=== PATIENT | male | born 1945 | race Caucasian/White ===

== ENCOUNTER 2017-03-19 23:48 | Inpatient (IN) | payer MEDICARE ==
[2017-03-20] MEDS ORDERED: Labetalol HCl 100 MG/20 ML VIAL ONE (00:56)
[2017-03-20 01:07] LABS: #Eosinphils 0.1 thou/uL (0.0-0.7); #Lymphocytes 2.4 thou/uL (1.20-3.40); #Monocytes 0.5 thou/uL (0.11-0.59); #Neutrophils 5.3 thou/uL (1.40-6.50); %Basophils 0.3 % (0.0-1.0); %Eosinophils 0.6 % (0.0-10.0); %Lymphocytes 28.9 % (21.0-51.0); %Neutrophils 64.2 % (42.0-75.0); Hemoglobin 16.4 g/dL (14.0-18.0); Mean Corpuscular HGB CONC 34.8 g/dL (32.0-36.0); Mean Corpuscular Hemoglobin 30.8 pg (27.0-31.0); Mean Corpuscular Volume 88.6 fl (80.0-94.0); Mean Platelet Volume 7.9 fL (7.4-10.4); Platelet Count 129 thou/uL (130-400); RBC Distribution Width 12.5 % (11.5-14.5); Red Blood Cell (RBC) Count 5.33 mill/uL (4.70-6.10); White Blood Cell (WBC) Count 8.2 thou/uL (4.8-10.8)
[2017-03-20 01:11] LABS: PTT 27.9 SEC (22.9-36.1)
[2017-03-20 01:12] LABS: INR-International Normal Ratio 1.1; Prothrombin Time 14.1 SEC (12.0-14.7)
[2017-03-20 01:29] LABS: ALT (SGPT) 80 U/L (8-55); AST (SGOT) 46 U/L (5-34); Albumin 4.8 g/dL (3.4-4.8); Alkaline Phosphatase 62 U/L (40-150); Anion Gap 15 mmol/L (10-20); BUN (Urea Nitrogen) 14 mg/dL (8.4-25.7); Bilirubin, Total 1.6 mg/dL (0.2-1.2); CK (CPK) 45 U/L (30-200); Calc. Creatinine Clearance 0 mL/min (70-130); Calcium 10.7 mg/dL (7.8-10.44); Carbon Dioxide 27 mmol/L (23-31); Chloride 100 mmol/L (98-107); Estimated GFR-MDRD 61; Globulin 3.9 g/dL (2.4-3.5); Glucose 145 mg/dL (83-110); Protein, Total 8.7 g/dL (5.8-8.1); Sodium 138 mmol/L (136-145)
[2017-03-20 01:33] LABS: CKMB 1.2 ng/mL (0-6.6); Troponin I 0.013 ng/mL (< 0.028)
[2017-03-20 01:38] LABS: Bilirubin Negative (Negative); Blood, Urine Negative (Negative); Clarity CLEAR (Clear); Glucose, Urine (Dipstick) Negative (Negative); Leukocyte Negative (Negative); Nitrite Negative (Negative); Protein, Urine (Dipstick) Trace mg/dL (Neg-Trace); Urobilinogen 0.2 mg/dL (0.2-1.0)
[2017-03-20 01:44] LABS: Medtox Reader # READER 1
[2017-03-20 01:46] LABS: Amphetamine Not Detected (NotDetected); Barbiturates Screen Not Detected (NotDetected); Benzodiazepine Screen Not Detected (NotDetected); Cocaine Metabolite Screen Not Detected (NotDetected); Medtox Control Line Valid? VALID (VALID); Methadone Not Detected (NotDetected); Methamphetamine Not Detected (NotDetected); Opiate Screen Not Detected (NotDetected); Oxycodone Screen Not Detected (NotDetected); Phencyclidine (PCP) Not Detected (NotDetected); THC/Cannabinoid Screen Not Detected (NotDetected); Tricyclic Screen Not Detected (NotDetected)
[2017-03-20] MEDS ORDERED: Acetaminophen 325 MG TAB ONE ×2 (02:45→03:01)
[2017-03-20] MEDS ORDERED: Loperamide HCl 2 MG CAP PO PRN (04:22)
[2017-03-20] MEDS ORDERED: hydrALAZINE 20 MG/ML VIAL SLOW IVP PRN (04:22)
[2017-03-20] MEDS ORDERED: HumaLOG 300 UNITS/3 ML VIAL SC PRN ×2 (04:22)
[2017-03-20] MEDS ORDERED: Artificial Tears 18 DROP/0.9 ML EA EYE PRN (04:22)
[2017-03-20] MEDS ORDERED: Mag-Al 1200 mg/1200 mg/30 ML UDCUP PO PRN (04:22)
[2017-03-20] MEDS ORDERED: Acetaminophen 325 MG TAB PO PRN (04:22)
[2017-03-20] MEDS ORDERED: Eucerin (Mineral Oil/Petrolatum,White) 30 gm Jar TOP PRN (04:22)
[2017-03-20] MEDS ORDERED: Diabetic Tussin 200 MG/10 ML UDCUP PO PRN (04:22)
[2017-03-20] MEDS ORDERED: Dextrose 50% Abboject 50 ML SYRINGE SLOW IVP PRN (04:22)
[2017-03-20] MEDS ORDERED: Dextrose 5% in Water 1,000 ML IV PRN (04:22)
[2017-03-20] MEDS ORDERED: Zolpidem Tartrate 5 MG TAB PO PRN (04:22)
[2017-03-20] MEDS ORDERED: HYDROcodone/Acetaminophen 5/325 mg Tablet PO PRN (04:22)
[2017-03-20] MEDS ORDERED: Loratadine 10 MG TAB PO PRN (04:22)
[2017-03-20] MEDS ORDERED: Senokot 8.6 MG TAB PO PRN (04:22)
[2017-03-20] MEDS ORDERED: Sodium Chloride 0.65% Nasal 44 ML BOT EA NARE PRN (04:22)
[2017-03-20] MEDS ORDERED: Milk Of Magnesia 30 ML UDCUP PO PRN (04:22)
[2017-03-20] MEDS ORDERED: Ondansetron ODT 4 MG TAB PO PRN (04:22)
[2017-03-20] MEDS ORDERED: Ondansetron HCl/PF 4 MG/2 ML Vial IVP PRN (04:22)
[2017-03-20] MEDS ORDERED: Chloraseptic Spray 180 ml Bottle PO PRN (04:22)
--- NOTE | 2017-03-20 06:43 | HP ---
PRIMARY CARE PHYSICIAN: Dr. Alejo Hernandez. REASON FOR ADMISSION: Stroke-like symptoms. HISTORY OF PRESENT ILLNESS: A 71-year-old male who has previous history of CVA who was brought to emergency room for evaluation of altered mental status. This morning, the patient was altered. He was not eating or drinking during daytime and he was not able to come up with the proper words. He was responding less. The patient was also having word finding difficulty during daytime. These symptoms were not improving and getting worse and that is why family member brought him to emergency room. Family member reports that he was recently started on three different antibiotic therapies. Initially in emergency room, his NIH score was at 11 and then it reduced to 9. Patient started talking around 2 a.m. in the emergency room. He did not have any focal motor or sensory symptoms. Later on in emergency room course, patient was responding more and more and he was able to tell his name and date of . He was also able to recognize his family members. In the emergency room, this patient had CT brain which showed chronic ischemic white matter changes. He had abnormal LFT and that is why ultrasound gallbladder was obtained. This patient did not have any chest pain, palpitation or shortness of breath. He is having hard time hearing and his hearing aid is not with him and that is why it is very difficult to obtain great detailed history from him. PAST MEDICAL HISTORY: Diabetes type 2, hypertension, asthma, obesity, coronary artery disease, and dyslipidemia. PAST SURGICAL HISTORY: CABG x5, back surgery, thyroidectomy, hernia repair, and cholecystectomy. PAST PSYCHIATRIC HISTORY: Reviewed and negative. SOCIAL HISTORY: Patient is . He lives at home with his . No history of tobacco, alcohol or illicit drug abuse. FAMILY HISTORY: No strong family history of premature coronary artery disease, stroke or cancer. ALLERGIES: No known drug allergies. REVIEW OF SYSTEMS: The following complete review of systems was negative, unless otherwise mentioned in the HPI or below: Constitutional: Weight loss or gain, ability to conduct usual activities. Skin: Rash, itching. Eyes: Double vision, pain. ENT/Mouth: Nose bleeding, neck stiffness, pain, tenderness. Cardiovascular: Palpitations, dyspnea on exertion, orthopnea. Respiratory: Shortness of breath, wheezing, cough, hemoptysis, fever or night sweats. Gastrointestinal: Poor appetite, abdominal pain, heartburn, nausea, vomiting, constipation, or diarrhea. Genitourinary: Urgency, frequency, dysuria, nocturia. Musculoskeletal: Pain, swelling. Neurologic/Psychiatric: Anxiety, depression. Allergy/Immunologic: Skin rash, bleeding tendency. Please see my HPI for pertinent positive and negative. All other review of systems reviewed and negative except as mentioned in the HPI. EMERGENCY ROOM COURSE: Patient has received aspirin and Patient is also given IV fluids and Tylenol 650 mg. CURRENT HOME MEDICATIONS: Aspirin 81 mg p.o. daily, Plavix 75 mg p.o. daily, metformin 1000 mg p.o. daily, Singulair 10 mg p.o. daily, Toprol-XL 25 mg p.o. daily, Zocor 40 mg p.o. daily, Januvia 100 mg p.o. daily. PHYSICAL EXAMINATION: VITAL SIGNS: On arrival, blood pressure 200/105, pulse 102, respiratory rate 17 , temperature 100.0, saturation 99% on room air, weight 99.7 kilograms. GENERAL: Patient is currently alert, awake, no obvious acute distress. HEAD: Normocephalic, atraumatic. EYES: Pupils round, reactive to light. Extraocular muscle intact. ENT: Oropharynx within normal limits. Moist mucous membranes. No oral lesions. No pharyngeal erythema, no exudate. NECK: Supple, no JVD, no thyromegaly, no carotid bruits. LUNGS: Clear to auscultation without any rhonchi or rales. CARDIAC: S1, S2 regular without any significant murmur. ABDOMEN: Soft, bowel sounds present, nontender, nondistended. No organomegaly , no mass, no suprapubic tenderness. No right upper quadrant tenderness, no Swenson sign. BACK: Examination unremarkable, no CVA tenderness. EXTREMITIES: Upper extremity passive movements of all joints are normal. Lower extremity passive movements of all joints are normal. No edema, good peripheral pulsation. SKIN: No skin rash. HEMATOLOGICAL SYSTEM: No lymphadenopathy. PSYCHIATRIC: Normal affect. NEUROLOGIC: The patient is currently alert, awake, follows commands, moves all 4 limbs. No focal motor or sensory deficit noted. Plantar bilateral flexor. No cerebellar sign. Speech is now normal. PSYCHIATRIC: Normal affect. IMAGING AND SIGNIFICANT LABORATORY DATA: 1. EKG showing sinus tachycardia, borderline left atrial enlargement. 2. CT brain based on my review, small basal ischemic changes and atrophy. 3. CBC: WBC 8.2, hemoglobin 16.4, platelet 129, INR 1.1. 4. BMP: Sodium 138, potassium 4.0, chloride 100, carbon dioxide 27, anion gap 15, BUN 14, creatinine 1.17, glucose 145, and calcium 10.7. 5. LFT: AST 46, ALT 80, alkaline phosphatase 62, albumin 4.8. CK 45, CK-MB 1.2, troponin I 0.013, TSH 0.63. Urinalysis normal. Urine drug screen negative. ASSESSMENT AND PLAN/IMPRESSION: 1. Altered mental status, rule out cerebrovascular accident. 2. Aphasia, rule out cerebrovascular accident. 3. Transaminitis, rule out cholangitis. We will obtain ultrasound of right upper quadrant. 4. Diabetes type 2. 5. Hypertension. 6. Dyslipidemia. 7. Asthma. 8. History of cerebrovascular accident. DISCUSSION: At this point, we are suspected for a stroke. Current CT brain is not showing any acute intracranial process. We will need MRI brain. This patient already had echocardiography and carotid Doppler within a year. So, we will not repeat that again. We will follow up on ultrasound right upper quadrant. We will repeat LFT tomorrow. We will check hepatitis profile tomorrow and we will check lipid profile for risk stratification. Code status: The patient is FULL CODE. The patient's is surrogate decision maker. Disposition plan based on clinical course. Patient will need PT, OT evaluation and possibly SNU versus rehab evaluation if needed. Selected home medication will be continued in the hospital. THADDEUS
--- NOTE | 2017-03-20 07:48 | CT ---
PRELIMINARY REPORT/[facility]/EMERGENCY AFTER HOURS PROCEDURE: EXAM: CT Head Without Intravenous Contrast CLINICAL HISTORY: 71 years old, male; Signs and symptoms; Altered mental status/memory loss and speech disturbance; Con fusion or disorientation; Aphasia; Patient HX: Er 5; AMS; Pt was last seen acting normal last night, woke up this morning aphasic. Pt is able to respond to verbal commands. Pt denies pain in chest, arguello y, back, head. states pt had a mild stroke in the beginning of may 2016. Pt family states pt h as been complaining of fatigue, and weakness. Currently on 3 antibiotics and tamiflu. TECHNIQUE: Axial computed tomography images of the head/brain without intravenous contrast. COMPARISON: No relevant prior studies available. FINDINGS: Brain: Mild volume loss No hemorrhage. Mild white matter disease. Chronic right basal ganglia lacunar infarctions No edema. Ventricles: Unremarkable. No ventriculomegaly. Bones/joints: Unremarkable. No acute fracture. Soft tissues: Unremarkable. Sinuses: Unremarkable as visualized. No acute sinusitis. Mastoid air cells: Unremarkable as visualized. No mastoid effusion. IMPRESSION: No intracranial hemorrhage.Please see discussion above. Thank you for allowing us to participate in the care of your patient. Dictated and Authenticated by: Brandon Linda MD 03/20/2017 12:49 AM Central Time ([place] & [place]) FINAL REPORT CT BRAIN WITHOUT CONTRAST: Date: 03/20/17 COMPARISON: Altered mental status. COMPARISON: CT brain dated 05/29/16. FINDINGS: Old right lacunar infarct is similar, lowest infarct extending to the right leon radiata. Mild ex v acuo dilatation of the ventricular system due to atrophy. IMPRESSION: No acute intracranial abnormality. Findings and impression are concordant with the preliminary report by Rufina. POS: [facility]
--- NOTE | 2017-03-20 08:08 | ULT ---
ULTRASOUND GALLBLADDER RIGHT UPPER QUADRANT: Date: 03/20/17 HISTORY: Right upper quadrant pain, altered mental status. COMPARISON: None. FINDINGS: The pancreas is not well seen. The hepatic echotexture is increased. There has been prior cholecystec jennifer. Common bile duct measures 4.0 mm. Right kidney measures 11.5 x 5.9 x 4.9 cm without mass, hydronephrosis, or abnormal calcifications. IMPRESSION: 1. Increased hepatic echotexture suggesting steatosis. 2. Prior cholecystectomy. 3. Normal right kidney. POS: [facility]
[2017-03-20] MEDS ORDERED: Aspirin 325 mg Enteric Coated Tablet PO SCH (09:00)
[2017-03-20] MEDS: Aspirin 81 mg Enteric Coated Tablet PO SCH ×2 (10:51→10:59)
[2017-03-20] MEDS: Alogliptin 25 MG TAB PO SCH ×2 (10:52→10:59)
[2017-03-20] MEDS ORDERED: Enoxaparin Sodium 40 MG/0.4 ML SYRINGE ONE (10:54)
[2017-03-20] MEDS ORDERED: Metoprolol Tartrate 25 MG TAB ONE (10:54)
[2017-03-20] MEDS ORDERED: Clopidogrel Bisulfate 75 MG TAB ONE (10:57)
[2017-03-20] MEDS: Clopidogrel Bisulfate 75 MG TAB PO SCH (10:58)
[2017-03-20] MEDS: Enoxaparin Sodium 40 MG/0.4 ML SYRINGE SC SCH (10:58)
[2017-03-20 11:17] VITALS: BMI 32.5
--- NOTE | 2017-03-20 12:24 | MRI ---
MRI BRAIN WITHOUT CONTRAST: Date: 03/20/17 HISTORY: TIA. COMPARISON: CT brain same date. MRI brain dated 05/29/16. FINDINGS: On the diffusion-weighted imaging sequence, there are no abnormal areas of diffusion restriction to s uggest acute infarction. This is confirmed on the ADC map. On the susceptibility-weighted imaging sequence, no abnormal areas of hemorrhage. The examination is limited due to motion artifact. Extensive microvascular ischemic changes. There is Wallerian degeneration of the right cerebellar ped uncles. Old lacunar infarcts right leon radiata. Moderate periventricular white matter disease. The marrow signal of the clivus is maintained. Cerebellar tonsils terminate above the foramen magnum. The flow-voids are maintained. IMPRESSION: Chronic changes. No acute intracranial abnormality. POS: [facility]
--- NOTE | 2017-03-20 16:00 | PDOC.EVN ---
Event Note - Event Note Event Note: PATIENT SEEN AND EXAMINED BY ME. HE IS STABLE, MRI SHOWN NO NEW ISCHEMIA.
[2017-03-20] MEDS: metFORMIN 500 MG TAB PO SCH (16:46)
[2017-03-20] MEDS ORDERED: FLU VACC TS2017-18 (>65YR) 0.5 ML SYRINGE IM ONE (21:00)
[2017-03-20] MEDS: Montelukast Sodium 10 mg Tablet PO SCH (21:04)
[2017-03-20] MEDS: Atorvastatin Calcium 20 MG TAB PO SCH (21:06)
[2017-03-21 05:47] LABS: #Eosinphils 0.2 thou/uL (0.0-0.7); #Lymphocytes 2.5 thou/uL (1.20-3.40); #Monocytes 0.6 thou/uL (0.11-0.59); #Neutrophils 4.2 thou/uL (1.40-6.50); %Basophils 0.6 % (0.0-1.0); %Eosinophils 2.1 % (0.0-10.0); %Lymphocytes 32.8 % (21.0-51.0); %Monocytes 8.4 % (0.0-10.0); %Neutrophils 56.1 % (42.0-75.0); Hemoglobin 15.7 g/dL (14.0-18.0); Mean Corpuscular HGB CONC 34.1 g/dL (32.0-36.0); Mean Corpuscular Hemoglobin 30.3 pg (27.0-31.0); Mean Corpuscular Volume 88.9 fl (80.0-94.0); Platelet Count 134 thou/uL (130-400); RBC Distribution Width 12.5 % (11.5-14.5); Red Blood Cell (RBC) Count 5.19 mill/uL (4.70-6.10); White Blood Cell (WBC) Count 7.5 thou/uL (4.8-10.8)
[2017-03-21 06:00] LABS: ALT (SGPT) 67 U/L (8-55); AST (SGOT) 38 U/L (5-34); Alkaline Phosphatase 48 U/L (40-150); Anion Gap 12 mmol/L (10-20); BUN (Urea Nitrogen) 16 mg/dL (8.4-25.7); Bilirubin, Total 1.5 mg/dL (0.2-1.2); Calc. Creatinine Clearance 95 mL/min (70-130); Calcium 9.7 mg/dL (7.8-10.44); Carbon Dioxide 24 mmol/L (23-31); Cardiac Risk 5.1 (Less than 4.5); Chloride 103 mmol/L (98-107); Cholesterol 173 mg/dl (< 200 Desired); Estimated GFR-MDRD 73; Globulin 3.1 g/dL (2.4-3.5); Glucose 141 mg/dL (83-110); HDL Cholesterol 34 mg/dL (>60 Neg Risk); LDL Cholesterol, Calculated 104 mg/dL; Potassium 4.2 mmol/L (3.5-5.1); Protein, Total 7.1 g/dL (5.8-8.1); Sodium 135 mmol/L (136-145); Triglycerides 176 mg/dL (Less than 150)
[2017-03-21 06:19] LABS: HBCM Index 0.18 S/CO (0-0.79); Hep A IgM AB Non-Reactive (NonReactive); Hep A IgM S/CO 0.09 S/CO (0-0.79); Hep B Surf Ag Non-Reactive S/CO (NonReactive); Hep C IgG Ab Non-Reactive (NonReactive); Hep C Index 0.08 S/CO (0-0.79); Hepatitis B Core IGM Abs Non-Reactive (NonReactive)
[2017-03-21] MEDS: Clopidogrel Bisulfate 75 MG TAB PO SCH (08:45)
[2017-03-21] MEDS: Aspirin 81 mg Enteric Coated Tablet PO SCH (08:46)
[2017-03-21] MEDS: Alogliptin 25 MG TAB PO SCH (08:46)
[2017-03-21] MEDS: Enoxaparin Sodium 40 MG/0.4 ML SYRINGE SC SCH (08:47)
--- NOTE | 2017-03-21 14:08 | PDOC.PN ---
- Subjective Encounter Start Date: 03/21/17 Encounter Start Time: 14:07 Subjective: feels better.SOUTH at bedside reports problem w mentation persist -: Pt has some headache in the back of head - Objective Resuscitation Status: Resuscitation Status FULL:Full Resuscitation MAR Reviewed: Yes Vital Signs & Weight: Vital Signs (12 hours) Temp Pulse Pulse Pulse Resp BP BP 03/21/17 11:15 98.2 F 87 16 03/21/17 09:45 91 93 145/84 H 131/84 03/21/17 08:00 97.7 F 87 16 03/21/17 07:20 97.7 F 87 16 03/21/17 05:06 97.4 F L 101 H 18 BP Pulse Ox 03/21/17 11:15 143/90 H 93 L 03/21/17 09:45 03/21/17 08:00 93 L 03/21/17 07:20 161/104 H 93 L 03/21/17 05:06 143/80 H 98 Weight Weight 220 lb 12.8 oz I&O: 03/20/17 03/21/17 03/22/17 06:59 06:59 06:59 Intake Total 540 Balance 540 Result Diagrams: 03/21/17 05:16 03/21/17 05:16 Additional Labs: Accuchecks 03/21/17 03/21/17 03/20/17 10:23 05:04 20:24 POC Glucose 136 H 134 H 128 H 03/20/17 03/20/17 16:50 14:39 POC Glucose 172 H 143 H Laboratory Tests 05/29/16 03/20/17 03/21/17 01:18 00:56 05:16 Total Bilirubin 1.6 H 1.5 H AST 43 H 46 H 38 H Triglycerides 176 H Cholesterol 173 LDL Cholesterol, Calc 104 HDL Cholesterol 34 Radiology Reviewed by me: Yes (Brain MRI-Chr microvascular changes. No Ac Infarct) Phys Exam - Physical Examination Constitutional: NAD HEENT: PERRLA, moist MMs, sclera anicteric, oral pharynx no lesions Neck: no nodes, no JVD, supple, full ROM Respiratory: no wheezing, no rales, no rhonchi, clear to auscultation bilateral Cardiovascular: RRR, no significant murmur Gastrointestinal: soft, non-tender, no distention, positive bowel sounds Musculoskeletal: no edema, pulses present Neurological: non-focal, normal sensation, moves all 4 limbs slow in asnwering Qs and confabulates,poor recall Psychiatric: normal affect, A&O x 3 Dx/Plan (1) CVA (cerebral vascular accident) Code(s): I63.9 - CEREBRAL INFARCTION, UNSPECIFIED Status: Suspected Qualifiers: Laterality of affected vessel: unspecified (2) Transaminitis Code(s): R74.0 - NONSPEC ELEV OF LEVELS OF TRANSAMNS & LACTIC ACID DEHYDRGNSE Status: Acute Comment: likley steatosis (3) Diabetes type 2, controlled Code(s): E11.9 - TYPE 2 DIABETES MELLITUS WITHOUT COMPLICATIONS Status: Chronic (4) Dyslipidemia Code(s): E78.5 - HYPERLIPIDEMIA, UNSPECIFIED Status: Chronic (5) Hypertension Code(s): I10 - ESSENTIAL (PRIMARY) HYPERTENSION Status: Chronic (6) Obesity (BMI 30.0-34.9) Code(s): E66.9 - OBESITY, UNSPECIFIED Status: Chronic - Plan plan discussed w/ family, PT/OT, speech therapy, out of bed/ambulate, DVT proph w/SCDs symptoms concerning for lacunar infarct/TIA even though MRI NL -: will wait for neurology recs.already on ASA,plavix.cont statin -: Ot,PT,[employer].hemodynamically stable -: US w/o any stones.Bilirubin improved-asymptomatic. -: monito rBP.avoid aggressive lowering for now * . Review of Systems - Review of Systems Constitutional: negative: fever, chills, sweats, weakness, malaise, other ENT: negative: Ear Pain, Ear Discharge, Nose Pain, Nose Discharge, Nose Congestion, Mouth Pain, Mouth Swelling, Throat Pain, Throat Swelling, Other Respiratory: negative: Cough, Dry, Shortness of Breath, Hemoptysis, SOB with Excertion, Pleuritic Pain, Sputum, Wheezing Cardiovascular: negative: chest pain, palpitations, orthopnea, paroxysmal nocturnal dyspnea, edema, light headedness, other Gastrointestinal: negative: Nausea, Vomiting, Abdominal Pain, Diarrhea, Constipation, Melena, Hematochezia, Other Genitourinary: negative: Dysuria, Frequency, Incontinence, Hematuria, Retention , Other Musculoskeletal: negative: Neck Pain, Shoulder Pain, Arm Pain, Back Pain, Hand Pain, Leg Pain, Foot Pain, Other Neurological: negative: Weakness, Numbness, Incoordination, Change in Speech, Confusion, Seizures, Other - Medications/Allergies Allergies/Adverse Reactions: Allergies Allergy/AdvReac Type Severity Reaction Status Date / Time No Known Drug Allergies Allergy Verified 05/29/16 06:24 Medications: Current Medications Acetaminophen (Tylenol) 650 mg PO Q4H PRN PRN Reason: Headache/Fever or Pain Last Admin: 03/20/17 17:15 Dose: 650 mg Hydrocodone Bitart/Acetaminophen ([place] 5/325) 1 tab PO Q4H PRN PRN Reason: Moderate Pain (4-6) Al Hydroxide/Mg Hydroxide (Maalox) 30 ml PO Q6H PRN PRN Reason: Heartburn or Indigestion Alogliptin Benzoate (Alogliptin) 25 mg PO DAILY [facility] Last Admin: 03/21/17 08:46 Dose: 25 mg Artificial Tears (Tears Naturale) 0 drop EA EYE PRN PRN PRN Reason: Dry Eyes Aspirin (Ecotrin) 81 mg PO DAILY [facility] Last Admin: 03/21/17 08:46 Dose: 81 mg Atorvastatin Calcium (Lipitor) 20 mg PO HS [facility] Last Admin: 03/20/17 21:06 Dose: 20 mg Clopidogrel Bisulfate (Plavix) 75 mg PO DAILY [facility] Last Admin: 03/21/17 08:45 Dose: 75 mg Dextrose/Water (Dextrose 50%) 25 gm SLOW IVP PRN PRN PRN Reason: Hypoglycemia Enoxaparin Sodium (Lovenox) 40 mg SC 0900 [facility] Last Admin: 03/21/17 08:47 Dose: 40 mg Glucagon (Glucagon) 1 mg IM PRN PRN PRN Reason: Hypoglycemia Guaifenesin (Robitussin Sf) 200 mg PO Q4H PRN PRN Reason: Cough Hydralazine HCl (Apresoline) 10 mg SLOW IVP Q4H PRN PRN Reason: Systolic BP > 180 Dextrose/Water (D5w) 1,000 mls @ 0 mls/hr IV .Q0M PRN; As Directed PRN Reason: Hypoglycemia Insulin Human Lispro (Humalog) 0 units SC .MODERATE SLIDING SC PRN PRN Reason: Moderate Correctional Scale Last Admin: 03/20/17 17:15 Dose: 2 unit Insulin Human Lispro (Humalog) 0 units SC .BEDTIME SLIDING SC PRN PRN Reason: Bedtime Correctional Scale Loperamide HCl (Imodium) 2 mg PO PRN PRN PRN Reason: Diarrhea/Loose Stools Loratadine (Claritin) 10 mg PO DAILYPRN PRN PRN Reason: Sinus Symptoms Magnesium Hydroxide (Milk Of Magnesium) 30 ml PO DAILYPRN PRN PRN Reason: Constipation Metformin HCl (Glucophage) 1,000 mg PO QPM-[facility] Last Admin: 03/20/17 16:46 Dose: 1,000 mg Metoprolol Succinate (Toprol Xl) 25 mg PO DAILY [facility] Last Admin: 03/21/17 08:47 Dose: 25 mg Mineral Oil/White Petrolatum (Eucerin Cream) 0 gm TOP BIDPRN PRN PRN Reason: Dry Skin Montelukast Sodium (Singulair) 10 mg PO QPM [facility] Last Admin: 03/20/17 21:04 Dose: Not Given Ondansetron HCl (Zofran Odt) 4 mg PO Q6H PRN PRN Reason: Nausea/Vomiting Ondansetron HCl (Zofran) 4 mg IVP Q6H PRN PRN Reason: Nausea/Vomiting Pantoprazole Sodium (Protonix) 40 mg PO DAILY [facility] Last Admin: 03/21/17 08:47 Dose: 40 mg Phenol (Chloraseptic Luna 180 Ml Bot) 0 ml PO PRN PRN PRN Reason: Sore Throat Senna (Senokot) 2 tab PO HSPRN PRN PRN Reason: Constipation Sodium Chloride (Anderson Nasal Luna 0.65%) 0 ml EA NARE QIDPRN PRN PRN Reason: Nasal Congestion Zolpidem Tartrate (Ambien) 5 mg PO HSPRN PRN PRN Reason: Insomnia
[2017-03-21] MEDS: metFORMIN 500 MG TAB PO SCH (17:04)
--- NOTE | 2017-03-21 19:09 | CON ---
DATE OF CONSULTATION: 03/21/2017 CONSULTING PHYSICIAN: Hospitalist Service. IMPRESSION: 1. Nonspecific encephalopathy and unsteadiness. 2. Extensive chronic small-vessel ischemic changes. 3. Diabetes. 4. Hypertension. 5. Hyperlipidemia. 6. History of stroke. PLAN: 1. Cortisol, T4, and B12. 2. Carotid ultrasound. 3. Continue current medications. HISTORY OF PRESENT ILLNESS: Mr. Paulino is a 71-year-old gentleman who reportedly was in his normal state of health until about a week ago, he started looking unsteady on his feet as he walked around the house and also did not seem to be acting appropriately. He was not answering his 's question s in a normal fashion. They did not note any definite lateralized weakness or numbness other than he reportedly had difficulty holding a plate up in his left hand on one occasion. He went and saw his primary care physician and got a shot of Rocephin and prednisone last week. His symptoms did not see m to improve. They thought he was maybe getting a bit worse and more unsteady on his feet, so they b rought him into the hospital for evaluation. He had MRI of the brain, which showed extensive small-v essel ischemic changes, but no evidence of an acute stroke. His lab studies were unremarkable other than a mildly elevated blood glucose. PAST MEDICAL HISTORY: As listed above. ALLERGIES: None. SOCIAL HISTORY: No tobacco or alcohol use. FAMILY HISTORY: Noncontributory. REVIEW OF SYSTEMS: Positive for complaints of occipital headache and a feeling of lightheadedness. No chest pain or shortness of breath. No abdominal pain, cramps, or diarrhea. No numbness or tingli ng of the extremities. PHYSICAL EXAMINATION: GENERAL: He is a reasonably healthy appearing elderly man in no acute distress. HEENT: Pupils equal and reactive. Conjunctivae clear. Oropharynx clear. NECK: Supple. EXTREMITIES: No cyanosis. NEUROLOGIC: He is alert and cooperative. He answers questions with long delays as well as follows c ommands with some difficulty in maintaining attention. His speech is fluent and clear. Cranial nerv es II-XII are intact. Motor exam showed symmetric strength without fix or drift. He is able to rosales d independently, but did waver a bit. Sensation was equal to touch. No abnormal movements were seen including asterixis. SUMMARY: This is a 71-year-old man with some nonspecific unsteadiness and slowed thinking. I would look for further metabolic problems. There is no definite structural etiology at this point, althoug h the onset of symptoms was at a point that we might miss acute changes on MRI.
[2017-03-21] MEDS: Atorvastatin Calcium 20 MG TAB PO SCH (19:56)
[2017-03-21] MEDS: Montelukast Sodium 10 mg Tablet PO SCH (19:56)
--- NOTE | 2017-03-21 20:54 | ULT ---
BILATERAL CAROTID DUPLEX ULTRASOUND: History: CVA. Comparison: MRI 03-20-17. FINDINGS: Real-time color doppler evaluation of the right and left carotid systems shows moderate plaque format ion bilaterally. On the right side, peak systolic velocity of the common carotid were 68 cm/sec. Internal carotid vel[place] is 75 cm/sec. External carotid velocity is 86 cm/sec. On the left side, peak systolic velocity of the common carotid are 93 cm/sec. Internal carotid veloci ty is 76 cm/sec. External carotid velocity is 85 cm/sec. Vertebral flow is antegrade bilaterally. IMPRESSION: No evidence of hemodynamically significant stenosis of either internal carotid artery. POS: [facility]
[2017-03-22 08:10] VITALS: TEMP 98.1
[2017-03-22] MEDS: Enoxaparin Sodium 40 MG/0.4 ML SYRINGE SC SCH (08:15)
[2017-03-22] MEDS: Aspirin 81 mg Enteric Coated Tablet PO SCH (08:15)
[2017-03-22] MEDS: Alogliptin 25 MG TAB PO SCH (08:15)
[2017-03-22] MEDS: Clopidogrel Bisulfate 75 MG TAB PO SCH (08:15)
[2017-03-22 11:40] VITALS: BP 142/86
--- NOTE | 2017-03-23 00:22 | DIS ---
PRIMARY CARE PHYSICIAN: Ariel Hernandez D.O. DATE OF ADMISSION: 03/20/2017 DATE OF DISCHARGE: 03/22/2017 DISCHARGE DISPOSITION: Home. DISCHARGE DIAGNOSES: 1. Nonspecific encephalopathy and unsteadiness. 2. Extensive chronic small vessel ischemic changes on MRI brain. 3. Diabetes. 4. Hypertension. 5. Dyslipidemia. 7. History of stroke. DISCHARGE MEDICATIONS: Azelastine nasal spray, tamsulosin 1 tablet daily, omeprazole 40 mg daily, Pl avix 75 mg daily, aspirin 81 mg daily, Januvia 100 mg daily, metformin 1000 mg daily, Toprol-XL 25 mg daily, simvastatin is 80 mg t.i.d. CONSULTATION: Camilo Simms M.D. Neurology. PROCEDURES DONE IN THE HOSPITAL: 1. CT scan of the brain upon presentation, which is negative for any acute intracranial process. No hemorrhage or mass effect. Old lacunar infarct seen in the right leon radiata. 2. MRI of the brain that shows chronic microvascular changes, otherwise unremarkable. 3. Abdominal ultrasound which shows no evidence of any gallstones. He had a prior cholecystectomy. Hepatic steatosis noticed. 4. Carotid Doppler ultrasound, which is negative for any hemodynamically significant stenosis. HISTORY OF PRESENT ILLNESS: Mr. Paulino is a 71-year-old male with known history of CVA in the past as well as diabetes, hypertension, and coronary artery disease who presented to the emergency room w ith complaints of altered mental status and unsteadiness. His initial CT was unremarkable. He had s omewhat abnormal LFTs and gallbladder ultrasound was obtained which only showed hepatic steatosis. H elvia was admitted to stroke floor for altered mental status and rule out CVA. Please see admission hist ory and physical for further details. HOSPITAL COURSE: The patient had improvement in his symptoms gradually. He underwent an MRI of the brain and carotid Doppler ultrasounds which were both unremarkable. Neurology saw the patient and di d not think that this was a CVA. Eventually, the patient returned back to baseline. With regards to his elevated liver enzymes, it trended down without any intervention. Abdominal ultr asound was negative for any choledocholithiasis or CBD dilatation. He was asymptomatic. His B12, TS H and T4 and cortisol levels were checked and were unremarkable. Cardiac enzymes were done and were unremarkable as well. Hepatitis panel was negative. Urine drug screen was negative. UA was unremar kable. He was seen by PT, OT and speech therapist and they recommended outpatient rehab, which was arranged for him. Otherwise, he was hemodynamically stable and back to baseline by the time of discharge. He was seen and examined prior to discharge. PHYSICAL EXAMINATION: VITAL SIGNS: Temperature 98.1, pulse of 86, respirations 20, saturating 98% on room air, blood press ure 142/86. GENERAL: No acute distress, awake, alert, oriented x2. CHEST: Clear to auscultation without any wheezing, rales or rhonchi. HEART: Rate and rhythm is regular without any murmur, rubs or gallops. NEUROLOGIC: Nonfocal. Discharge plan was discussed with the patient and I contacted his son over the phone and they verbali zed understanding. He will follow up with his primary care physician as well as Neurology as an outp atient. Total time spent 32 minutes.
== END 2017-03-22 13:41 | disposition home or self-care (01) | DRG 71 ==
LOC: ERS 23:48 → ERHOLD 03-20 02:36 → 2SE 03-20 15:42
PROVIDERS: ADMIT Internal Medicine; ATTEND Internal Medicine
DX: G93.40 Encephalopathy, unspecified (principal); R47.01 Aphasia; E11.9 Type 2 diabetes mellitus without complications; E66.9 Obesity, unspecified; I10 Essential (primary) hypertension; J45.909 Unspecified asthma, uncomplicated; I25.10 Atherosclerotic heart disease of native coronary artery without angina pectoris; E78.5 Hyperlipidemia, unspecified; Z95.1 Presence of aortocoronary bypass graft; Z86.73 Personal history of transient ischemic attack (TIA), and cerebral infarction without residual deficits; R74.0 Nonspecific elevation of levels of transaminase and lactic acid dehydrogenase [LDH]; Z68.32 Body mass index [BMI] 32.0-32.9, adult
CPT/HCPCS: 36415; 36416; 51701; 70450; 70551; 76705; 80053; 80061; 80074; 80306; 81003; 82533; 82550; 82553; 82607; 84436; 84443; 84484; 85025; 85610; 85730; 90471; 90682; 93005; 93880; 94760; 96361; 96374; G0008; G8978-GP-CK; G8979-GP-CI; G8987-GO-CK; G8988-GO-CI; J1650; Q2036

== ENCOUNTER 2019-03-02 08:25 | Outpatient (CLI) | payer MEDICARE ==
--- NOTE | 2019-03-02 09:26 | MRI ---
MRI LUMBAR SPINE WITHOUT CONTRAST: History: M54.16 lumbar radiculopathy, chronic. Comparison: None. Findings: The aortic contour is nonaneurysmal. Small T2 hyperintense foci of both kidneys. No hydronephrosis. No retroperitoneal periaortic adenopathy. Paraspinal musculature is symmetric. Anterior interbody fusion at L5-S1. The conus medullaris terminates at the mid L1 vertebral body. Levels are as follows: L1-L2: Mild degenerative disc space height loss. Small circumferential disc bulge. Mild bilateral junior ral foraminal narrowing. L2-L3: Moderate degenerative disc space height loss. Moderate hypertrophic facet arthrosis. Circumfer ential disc-osteophyte complex, greatest in the right subforaminal and extraforaminal zone. Abutment of both traversing nerve roots. Moderate to severe right and moderate left neural foraminal narrowing. L3-L4: Mild disc desiccation. Small right facet joint effusion with mild hypertrophic arthropathy. Ci rcumferential disc-osteophyte complex greatest in the subforaminal zones. Moderate bilateral neural foraminal narrowing. L4-L5: Mild degenerative disc space height loss. Circumferential disc bulge with bilateral subfrontal disc-osteophyte complexes. Moderate to severe left and moderate right neural foraminal narrowing. Abutment of both left exiting and traversing nerve roots in the right traversing nerve root. L5-S1: Severe hypertrophic facet arthrosis. Bilateral subforaminal osteophytes. Moderate bilateral ne ural foraminal narrowing. Impression: Multilevel spondylosis as described. No acute abnormality. Transcribed Date/Time: 03/02/2019 9:41 AM
== END 2019-03-02 08:26 | disposition home or self-care (01) ==
LOC: BICMRI 08:25
PROVIDERS: ATTEND Family Medicine
DX: M47.26 Other spondylosis with radiculopathy, lumbar region (principal)
CPT/HCPCS: 72148